=== PATIENT | female | born 2000 | race Two or more races ===

== ENCOUNTER 2025-02-03 06:17 | Inpatient (IN) | payer MEDICAID ==
[~2025-02-03] VITALS: Ht 170.2 cm; Wt 97.1 kg
[2025-02-03] MEDS ORDERED: NALBUPHINE HCL 10 MG/1ml INJECTION IV PRN (22:15)
[2025-02-03] MEDS ORDERED: LIDOCAINE 2%HCL (LOCAL ANESTH.) INJ 20ML MDV IJ PRN (22:15)
[2025-02-03] MEDS ORDERED: LACTATED RINGER'S 1,000 ML IV SCH (22:15)
[2025-02-03 22:38] LABS: Hematocrit 34.4 % (36.0-46.0); Hemoglobin 11.4 g/dL (12.2-16.2); Mean Corpuscular Hemoglobin 28.1 pg (28.0-32.0); Mean Corpuscular Volume 85.0 fL (80.0-100.0); Nucleated Red Blood Cells % 0.0 %
[2025-02-03 22:45] LABS: Urine Protein, UAD Negative (Negative)
[2025-02-03 22:54] LABS: INR 0.93 (0.9-1.15); Partial Thromboplastin Time 29.3 SEC (24.5-34.5); Prothrombin Time 9.9 sec (9.3-11.8)
[2025-02-03 23:00] LABS: Albumin 3.9 g/dL (3.2-4.8); Anion Gap 12 (5-15); Calcium 9.1 mg/dL (8.7-10.4); Carbon Dioxide 24 mmol/L (20-31); Chloride 104 mmol/L (98-107); Glucose 87 mg/dL (74-106); Potassium 3.5 mmol/L (3.5-5.1); Sodium 140 mmol/L (136-145); Total Protein 6.9 g/dL (5.7-8.2)
[2025-02-03 23:10] LABS: Alanine Aminotransferase < 9 U/L (7-40); Alkaline Phosphatase 187 U/L (46-116); BUN/Creatinine Ratio 8.3 (10.0-20.0); Bilirubin, Total 0.3 mg/dL (0.2-1.0); Blood Urea Nitrogen < 5 mg/dL (9-23)
[2025-02-03 23:11] LABS: Amphetamine Screen, Urine Neg (NEGATIVE); Barbiturate Scree,Urine Neg (NEGATIVE); Benzodiazephine Screen, Urine Neg (NEGATIVE); Cannabinoid Screen, Urine Neg (NEGATIVE); Cocaine Screen, Urine Neg (NEGATIVE); Opiate Scree,Urine Neg (NEGATIVE); Phencyclidine Screen, Urine Neg (NEGATIVE)
--- NOTE | 2025-02-03 23:16 | DVHHP2 ---
OB CC & HPI Date Date of Admission: Feb 03, 2025 Patient Identification: : 1 Para: 0 EDC: Feb 04, 2025 EGA: 39w 6d Chief Complaints: Reason for admission: induction of labor Indication for induction: other Admission Nurse Assessment Rev: Yes History of Present Complaints Ms Nishant Kaur presents to Place for scheduled IOL for Possible macrosomia. She reports normal FM, no UCs, VB, LOF, REEDER, epigastric pain or vision changes. Received care at [facility] with Dr. Alicea. Uncomplicated Past Medical History Cardiac: No pertinent Hx Pulmonary: No pertinent Hx Central Nervous System: No pertinent Hx GI: No pertinent Hx Hemotology/Oncology: No pertinent Hx Hepatobiliary: No pertinent Hx Psychiatric: No pertinent Hx Musculoskeletal: No pertinent Hx Rheumotologic: No pertinent Hx Infectious Disease: No peritnent Hx ENT: No pertinent Hx Renal/: No pertinent Hx Endocrine: No pertinent Hx Dermatology: No pertinent Hx Past Surgical History: No pertinent Hx OB History OB History Care: [facility] (at [facility]) Ultrasounds: Normal mid trimester US Obstetrical Complications: None Medical Complications: None Allergies: Coded Allergies: Penicillins (Verified Allergy, Unknown, 02/03/25) Current Medications Current Medications Medications (Trade) Dose Ordered Sig/Efrain Route PRN Reason Start Time Stop Time Status Last Admin Lactated Ringer's 1,000 ml @ 125 mls/hr Q8H IV 02/03/25 22:15 Nalbuphine HCl (Nubain) 10 mg Q4HP PRN IV MODERATE PAIN (4-6 PAIN SCALE) 02/03/25 22:15 Witch Holly (Tucks) 1 pad PRN PRN TOP PERINEAL AREA DISCOMFORT 02/03/25 22:15 Sodium Lauryl Sulfate (Phisoderm) 240 ml PRN PRN TOP PERINEAL AREA DISCOMFORT 02/03/25 22:15 Benzocaine (Dermoplast) 1 applic PRN PRN TOP PERINEAL AREA DISCOMFORT 02/03/25 22:15 Misoprostol (Cytotec) 50 mcg Q4HPRN PRN PO CERVICAL RIPENING 02/03/25 22:15 Lidocaine HCl (Xylocaine) 20 ml ONCE PRN IJ PERINEAL AREA DISCOMFORT 02/03/25 22:15 Oxytocin 1,000 ml @ 6 ml/hr Q24H IV 02/03/25 22:15 Family & Social History Family/Social History Past Family/Social History: Non pertinent Blood Type: O+ Rubella: immune RPR/VDRL: Negative GBS Status: Negative HBsAG: Negative Review of Systems Constitutional: No symptom reported Ears, Nose, & Throat: No symptom reported Eyes: No symptom reported Pulmonary/Respiratory: No symptom reported Cardiovascular: No symptom reported Gastrointestinal: No symptom reported Genitourinary: No symptom reported Musculoskeletal: No symptom reported Skin: No symptom reported Psychiatric: No symptom reported Endocrine: No symptom reported Hemotologic/Lymphatic: No symptom reported OB Admission Exam Physical Exam HEENT: TMs Normal, Fontanelles Normal, Nasal Mucosa Normal, Eyes non-injected, Oropharynx Normal, PERRLA, Moist Membranes, EOMI Heart: Rhythm Normal Lungs: Clear Abdomen: Gravid (and non-tender to palpation) Extremities: Normal Reflexes: Normal Cervical Dilatation: 1cm Effacement: 25% Station: -1 Membranes: Intact Heart Rate: 130's Accelerations: Accelerations Present Decelerations: No Decelerations Nursing Home Variability: Average (6-25) Contractions on Admission: None OB Plan Plan Admitting Diagnosis: <> IUP at 39w 6d <> Induction of Labor <> GBS Neg <> Category I FHR Tracing Plan: Induction Induction Methd: Misoprostol protocol Other Plan: Expectant vaginal delivery. Risks and possible complications of induction discussed with the patient. The patient had an estimated weight of 8pounds 4ounces. IOL process, cervical ripening with medication, cervical ripening balloon, oxytocin etc including the risks, benefits and all her options including primary Section discussed with the patient & partner. The patient wishes to proceed with trial of vaginal delivery. Informed consent obtained. Risk of pain, bleeding, infection, discussed with the patient and partner Consent for possible blood transfusion obtained. All questions answered. Admit to Place for scheduled IOL Routine L&D admission orders Misoprostol per protocol EFM per policy & protocol Intrauterine resuscitation PRN Labor analgesia PRN Encourage frequent position change and ambulation to facilitate labor & descent Supportive Care Anticipate Visit Coding OBGYN Date of Service: Feb 03, 2025 Billing Provider: JOON LEMUS CNM FINANCIAL SERVICE PROFESSIONAL Common Visit Codes: [id number] INP/OBS CARE (HIGH) FINANCIAL SERVICE PROFESSIONAL Procedure Codes: 89689-27- NON-STRESS TEST JOON LEMUS CNM Feb 03, 2025 23:16
[2025-02-04] MEDS: DERMOPLAST 60ML BOTTLE TOP PRN (00:28)
[2025-02-04] MEDS: WITCH HAZEL-GLYCERIN PAD TOP PRN (00:28)
[2025-02-04] MEDS: PHISODERM TOP SOLN 240ML BTL TOP PRN (00:28)
--- NOTE | 2025-02-04 00:47 | DVH ---
BIOPHYSICAL PROFILE HISTORY: presentation Comparison Study: None TECHNIQUE: Multiple real-time grayscale sonographic images through the gravid uterus of the fetus wi th duplex Doppler color flow and M-mode spectral analysis FINDINGS: Cephalic presentation. IMPRESSION: 1. Cephalic presentation.
--- NOTE | 2025-02-04 04:49 | DVHPN2 ---
CNM Labor Progress Note Date and Time Seen Date Seen: Feb 04, 2025 Time Seen: 04:35 Subjective Patient reports: No new complaints Objective Vital Signs VSS Monitoring Method Monitoring Method: External Heart Rate Heart Rate Baseline: 130 Heart Rate Variability: Moderate Presence of FHR Accelerations: Yes Presence of FHR Decelerations: No Changes in Trends of Patterns: No Are all 5 Components of the FH: Yes Contractions Contractions Frequency: Other (Q2-3) Duration of Contraction: 50 Contractions Intensity: Mild Contractions Resting Tone: Relaxed Membranes Membranes: Intact Vaginal Exam Vag Exam Deferred: Yes Medications Medications - Pitocin: No Medication - Epidural: No Medication - Other Misoprostol Dose #2 given at 04:31 Lab Results Lab Results Current Medications Medications (Trade) Dose Ordered Sig/Efrain Start Time Stop Time Status Last Admin Dose Admin Lactated Ringer's 1,000 ml @ 125 mls/hr Q8H 02/03/25 22:15 Nalbuphine HCl (Nubain) 10 mg Q4HP PRN 02/03/25 22:15 Thuan Barrera (Tucks) 1 pad PRN PRN 02/03/25 22:15 02/04/25 00:28 1 PAD Sodium Lauryl Sulfate (Phisoderm) 240 ml PRN PRN 02/03/25 22:15 02/04/25 00:28 240 ML Benzocaine (Dermoplast) 1 applic PRN PRN 02/03/25 22:15 02/04/25 00:28 1 APPLIC Misoprostol (Cytotec) 50 mcg Q4HPRN PRN 02/03/25 22:15 02/04/25 00:29 50 MCG Lidocaine HCl (Xylocaine) 20 ml ONCE PRN 02/03/25 22:15 Oxytocin 1,000 ml @ 6 ml/hr Q24H 02/03/25 22:15 Oxytocin 500 ml @ 999 mls/hr Q31M ONCE 02/03/25 22:15 02/03/25 22:45 DC Oxytocin 500 ml @ 125 mls/hr Q4H ONCE 02/03/25 22:45 02/04/25 02:44 DC Laboratory Tests Test 02/03/25 22:23 02/03/25 22:10 Range/Units White Blood Count 7.5 4.4-10.8 10^3/uL Red Blood Count 4.04 4.0-5.20 10^6/uL Hemoglobin 11.4 L 12.2-16.2 g/dL Hematocrit 34.4 L 36.0-46.0 % Mean Corpuscular Volume 85.0 80.0-100.0 fL Mean Corpuscular Hemoglobin 28.1 28.0-32.0 pg Mean Corpuscular Hemoglobin Concent 33.1 32.0-36.0 g/dL Red Cell Distribution Width 16.1 H 11.8-14.3 % Platelet Count 309 140-450 10^3/uL Mean Platelet Volume 7.7 6.9-10.8 fL Neutrophils (%) (Auto) 68.0 37.0-80.0 % Lymphocytes (%) (Auto) 24.9 10.0-50.0 % Monocytes (%) (Auto) 6.6 0.0-12.0 % Eosinophils (%) (Auto) 0.3 0.0-7.0 % Basophils (%) (Auto) 0.2 0.0-2.0 % Neutrophils # (Auto) 5.1 1.6-8.6 10 ^3/uL Lymphocytes # (Auto) 1.9 0.4-5.4 10 ^3/uL Monocytes # (Auto) 0.5 0-1.3 10 ^3/uL Eosinophils # (Auto) 0 0-0.8 10 ^3/uL Basophils # (Auto) 0 0-0.2 10 ^3/uL Nucleated Red Blood Cells 0.0 % Prothrombin Time 9.9 9.3-11.8 sec Prothrombin Time INR 0.93 0.9-1.15 Activated Partial Thromboplast Time 29.3 24.5-34.5 SEC Sodium Level 140 136-145 mmol/L Potassium Level 3.5 3.5-5.1 mmol/L Chloride Level 104 98-107 mmol/L Carbon Dioxide Level 24 20-31 mmol/L Anion Gap 12 5-15 Blood Urea Nitrogen < 5 L 9-23 mg/dL Creatinine 0.60 0.550-1.02 mg/dL Glomerular Filtration Rate Calc 127 >90 mL/min BUN/Creatinine Ratio 8.3 L 10.0-20.0 Serum Glucose 87 74-106 mg/dL Calcium Level 9.1 8.7-10.4 mg/dL Total Bilirubin 0.3 0.2-1.0 mg/dL Aspartate Amino Transferase (AST) 16 13-40 U/L Alanine Aminotransferase (ALT) < 9 7-40 U/L Alkaline Phosphatase 187 H 46-116 U/L Total Protein 6.9 5.7-8.2 g/dL Albumin 3.9 3.2-4.8 g/dL Treponema pallidum Antibody Non-reactive Negative Urine Color Light-yellow Yellow Urine Clarity Turbid H Clear Urine pH 6.5 5.0-9.0 Urine Specific [place] 1.007 1.001-1.035 Urine Protein Negative Negative Urine Ketones 1+ H Negative Urine Blood Negative Negative /uL Urine Nitrite Negative Negative Urine Bilirubin Negative Negative Urine Urobilinogen Normal Negative mg/dL Urine Leukocyte Esterase Negative Negative /uL Urine RBC 1 0 - 4 /hpf Urine Microscopic WBC 6 H 0-5 /HPF Urine Squamous Epithelial Cells Few <5 /hpf Urine Bacteria Many H None Seen /hpf Urine Glucose Normal Normal mg/dL Urine Opiates Screen Neg NEGATIVE Urine Fentanyl Screen Neg NEGATIVE Urine Barbiturates Screen Neg NEGATIVE Urine Phencyclidine Screen Neg NEGATIVE Urine Amphetamines Screen Neg NEGATIVE Urine Benzodiazepines Screen Neg NEGATIVE Urine Cocaine Screen Neg NEGATIVE Urine Cannabinoids Screen Neg NEGATIVE Plan Plan discussed with: Patient, Spouse, Other (Patient's mother and patient's sister) Visit Coding OBGYN Date of Service: Feb 04, 2025 Billing Provider: JOON LEMUS CNM CLIENT ADMINISTRATOR Common Visit Codes: [id number] INP/OBS CARE(HIGH) CLIENT ADMINISTRATOR Procedure Codes: 99831-27- NON-STRESS TEST JOON LEMUS CNM Feb 04, 2025 04:49
[2025-02-04] MEDS ORDERED: ONDANSETRON HCL 4 MG/2 ML VIAL IV PRN (14:45)
[2025-02-04] MEDS ORDERED: DINOPROSTONE 10MG VAG SUPP PV ONE (14:45)
[2025-02-04] MEDS ORDERED: LACTATED RINGER'S 1,000 ML IV ONE (16:15)
[2025-02-04] MEDS: ROPIVACAINE HCL 100 ML ONE ×2 (16:52→23:50)
[2025-02-04] MEDS: LACT. RINGERS/OXYTOCIN 20UNITS 1,000 ML IV SCH (17:29)
--- NOTE | 2025-02-04 21:31 | DVHPN2 ---
OB Labor Progress Note Date and Time Seen Date Seen: Feb 04, 2025 Time Seen: 21:26 Subjective Patient reports: No new complaints, Feels better (s/p Epidural, no pain) Objective Vital Signs Afeb VS stable Monitoring Method Monitoring Method: External Heart Rate Heart Rate Baseline: 135 Heart Rate Variability: Moderate Presence of FHR Accelerations: Yes Presence of FHR Decelerations: No Contractions Contractions Frequency: Other (3 in 10min) Contractions Intensity: Moderate Contractions Resting Tone: Relaxed Membranes Membranes: Ruptured Amniotic Fluid Color: TALENT ACQUISITION COORDINATOR Meconium (2+ mec) Vaginal Exam Vaginal Exam Dilation: 5 Vaginal Exam Effacement: 90 Vaginal Exam Station: -2 Vaginal Exam Presentation: VTX Vaginal Exam Show: None Medications Medications - Pitocin: Yes Medication - Epidural: Yes Lab Results Lab Results Current Medications Medications (Trade) Dose Ordered Sig/Efrain Start Time Stop Time Status Last Admin Dose Admin Lactated Ringer's 1,000 ml @ 125 mls/hr Q8H 02/03/25 22:15 Nalbuphine HCl (Nubain) 10 mg Q4HP PRN 02/03/25 22:15 Witbriseyad Holly (Tucks) 1 pad PRN PRN 02/03/25 22:15 02/04/25 00:28 1 PAD Sodium Lauryl Sulfate (Phisoderm) 240 ml PRN PRN 02/03/25 22:15 02/04/25 00:28 240 ML Benzocaine (Dermoplast) 1 applic PRN PRN 02/03/25 22:15 02/04/25 00:28 1 APPLIC Misoprostol (Cytotec) 50 mcg Q4HPRN PRN 02/03/25 22:15 02/04/25 10:28 50 MCG Lidocaine HCl (Xylocaine) 20 ml ONCE PRN 02/03/25 22:15 Oxytocin 1,000 ml @ 6 ml/hr Q24H 02/03/25 22:15 02/04/25 17:29 6 ML/HR Oxytocin 500 ml @ 999 mls/hr Q31M ONCE 02/03/25 22:15 02/03/25 22:45 DC Oxytocin 500 ml @ 125 mls/hr Q4H ONCE 02/03/25 22:45 02/04/25 02:44 DC Dinoprostone (Cervidil Suppository) 1 supp ONCE ONCE 02/04/25 14:45 02/04/25 14:46 DC Ondansetron HCl (Zofran) 4 mg Q4HPRN PRN 02/04/25 14:45 Ephedrine Sulfate (ePHEDrine SULFATE) 10 mg PRN ONCE 02/04/25 16:15 02/04/25 16:17 DC Lactated Ringer's 1,000 ml @ 1,000 mls/hr Q1H ONCE 02/04/25 16:15 02/04/25 17:14 DC Laboratory Tests Test 02/03/25 22:23 02/03/25 22:10 Range/Units White Blood Count 7.5 4.4-10.8 10^3/uL Red Blood Count 4.04 4.0-5.20 10^6/uL Hemoglobin 11.4 L 12.2-16.2 g/dL Hematocrit 34.4 L 36.0-46.0 % Mean Corpuscular Volume 85.0 80.0-100.0 fL Mean Corpuscular Hemoglobin 28.1 28.0-32.0 pg Mean Corpuscular Hemoglobin Concent 33.1 32.0-36.0 g/dL Red Cell Distribution Width 16.1 H 11.8-14.3 % Platelet Count 309 140-450 10^3/uL Mean Platelet Volume 7.7 6.9-10.8 fL Neutrophils (%) (Auto) 68.0 37.0-80.0 % Lymphocytes (%) (Auto) 24.9 10.0-50.0 % Monocytes (%) (Auto) 6.6 0.0-12.0 % Eosinophils (%) (Auto) 0.3 0.0-7.0 % Basophils (%) (Auto) 0.2 0.0-2.0 % Neutrophils # (Auto) 5.1 1.6-8.6 10 ^3/uL Lymphocytes # (Auto) 1.9 0.4-5.4 10 ^3/uL Monocytes # (Auto) 0.5 0-1.3 10 ^3/uL Eosinophils # (Auto) 0 0-0.8 10 ^3/uL Basophils # (Auto) 0 0-0.2 10 ^3/uL Nucleated Red Blood Cells 0.0 % Prothrombin Time 9.9 9.3-11.8 sec Prothrombin Time INR 0.93 0.9-1.15 Activated Partial Thromboplast Time 29.3 24.5-34.5 SEC Sodium Level 140 136-145 mmol/L Potassium Level 3.5 3.5-5.1 mmol/L Chloride Level 104 98-107 mmol/L Carbon Dioxide Level 24 20-31 mmol/L Anion Gap 12 5-15 Blood Urea Nitrogen < 5 L 9-23 mg/dL Creatinine 0.60 0.550-1.02 mg/dL Glomerular Filtration Rate Calc 127 >90 mL/min BUN/Creatinine Ratio 8.3 L 10.0-20.0 Serum Glucose 87 74-106 mg/dL Calcium Level 9.1 8.7-10.4 mg/dL Total Bilirubin 0.3 0.2-1.0 mg/dL Aspartate Amino Transferase (AST) 16 13-40 U/L Alanine Aminotransferase (ALT) < 9 7-40 U/L Alkaline Phosphatase 187 H 46-116 U/L Total Protein 6.9 5.7-8.2 g/dL Albumin 3.9 3.2-4.8 g/dL Treponema pallidum Antibody Non-reactive Negative Urine Color Light-yellow Yellow Urine Clarity Turbid H Clear Urine pH 6.5 5.0-9.0 Urine Specific [place] 1.007 1.001-1.035 Urine Protein Negative Negative Urine Ketones 1+ H Negative Urine Blood Negative Negative /uL Urine Nitrite Negative Negative Urine Bilirubin Negative Negative Urine Urobilinogen Normal Negative mg/dL Urine Leukocyte Esterase Negative Negative /uL Urine RBC 1 0 - 4 /hpf Urine Microscopic WBC 6 H 0-5 /HPF Urine Squamous Epithelial Cells Few <5 /hpf Urine Bacteria Many H None Seen /hpf Urine Glucose Normal Normal mg/dL Urine Opiates Screen Neg NEGATIVE Urine Fentanyl Screen Neg NEGATIVE Urine Barbiturates Screen Neg NEGATIVE Urine Phencyclidine Screen Neg NEGATIVE Urine Amphetamines Screen Neg NEGATIVE Urine Benzodiazepines Screen Neg NEGATIVE Urine Cocaine Screen Neg NEGATIVE Urine Cannabinoids Screen Neg NEGATIVE Assessment Assessment Term IUP, Induction of labor Categ 1 tracing GBS neg Plan Plan s/p AROM Continue Pitocin Anticipated Risks of meconium fluid discussed w/ patient Plan discussed with: Patient Visit Coding OBGYN Date of Service: Feb 04, 2025 Billing Provider: TAD MEDLEY DO BUSINESS SUPPORT Common Visit Codes: [id number] INP/OBS CARE(HIGH) (Procedure: Amniotomy AROM) GALINDOTAD G DO Feb 04, 2025 21:31
--- NOTE | 2025-02-05 01:51 | LDN2 ---
Labor and Delivery Note Date 02/05/25 Age 24 1 Para 1 EGA 40.1 Diagnosis Term , delivered Meconium fluid Vaginal Delivery: VTX Vacuum Assisted: No Placenta: Spontaneous Sex: Female Weight 3850gm ( 8 lb, 8oz) Apgars 8/9 Amniotic Fluid: Meconium Stained Anesthesia Epidural Episiotomy: No Extension: No Repaired with 1st deg perineal/post vaginal lac repaired w/ 3-0 Vicryl x 2 interrupted stitches EBL 100 mL Labs Blood Bank 02/03/25 22:23: Blood Type O POSITIVE Complications None Conditions Stable Comments/Significant Med Moncho NO dystocia. Anterior (left) shoulder delivered first, then post shoulder (right) w/ no difficulty. Respiratory team present for MEC delivery. Baby vigorous at . Mother and baby doing well Visit Coding OBGYN Date of Service: Feb 05, 2025 Billing Provider: TAD MEDLEY DO HOUSE FATHER Common Visit Codes: PROCEDURE ONLY HOUSE FATHER Procedure Codes: [id number] OB CARE,VAG DELIVERY TAD MEDLEY DO Feb 05, 2025 01:51
[2025-02-05] MEDS: LACT. RINGERS/OXYTOCIN 20UNITS 500 ML IV ONE ×2 (02:35)
[2025-02-05 03:30] VITALS: PULSE 116; RESP 18; O2SAT 100
[2025-02-05] MEDS ORDERED: IBUPROFEN 600 MG TAB PO PRN (04:00)
[2025-02-05] MEDS ORDERED: ACETAMINOPHEN 325 MG TAB PO PRN (04:00)
[2025-02-05 07:00] VITALS: BP 127/71; PULSE 99; RESP 18; TEMP 98.2; O2SAT 97
--- NOTE | 2025-02-05 09:29 | DVHPN2 ---
Progress Note Date Seen: Feb 05, 2025 Subjective PPD#1 s/p Term No complaints. lochia mild. Pain controlled vital signs Vital Sign Date Time Temp Pulse Resp B/P (MAP) Pulse Ox O2 Delivery O2 Flow Rate FiO2 02/05/25 07:00 Room Air 0.0 02/05/25 07:00 98.2 99 18 127/71 (89) 97 98.2 Total Intake and Output 02/04/25 02/04/25 02/05/25 15:00 23:00 07:00 Output Total 1500 ml Balance -1500 ml medications Current Medications Medications Dose Ordered Sig/Efrain Route Start Time Stop Time Status Last Admin Dose Admin Lactated Ringer's 1,000 ml @ 125 mls/hr Q8H IV 02/03/25 22:15 Nalbuphine HCl 10 mg Q4HP PRN IV 02/03/25 22:15 Cancel Witch Holly 1 pad PRN PRN TOP 02/03/25 22:15 02/04/25 00:28 1 PAD Sodium Lauryl Sulfate 240 ml PRN PRN TOP 02/03/25 22:15 02/04/25 00:28 240 ML Benzocaine 1 applic PRN PRN TOP 02/03/25 22:15 02/04/25 00:28 1 APPLIC Lidocaine HCl 20 ml ONCE PRN IJ 02/03/25 22:15 Cancel Ondansetron HCl 4 mg Q4HPRN PRN IV 02/04/25 14:45 Ibuprofen 600 mg Q6HP PRN PO 02/05/25 04:00 Acetaminophen 650 mg Q4HP PRN PO 02/05/25 04:00 laboratory and microbiology Laboratory Tests 02/03/25 22:23 Test 02/03/25 22:23 Range/Units Serum Glucose 87 74-106 mg/dL Objective O: AFVSS Chest: heart and lung sounds normal. Abd soft, non-tender, fundus firm, BS, no rebound or guarding, Ext Neg Homans, Non-tender, edema Lochia - minimal Labs Pending Assessment/Plan PPD#1 s/p Supportive care D/C planning Plan discussed with: Patient Visit Coding OBGYN Date of Service: Feb 05, 2025 Billing Provider: TAD MEDLEY DO DIGITAL COMPOSER Common Visit Codes: [id number] INP/OBS CARE(MOD) TAD MEDLEY DO Feb 05, 2025 09:29
[2025-02-05] MEDS ORDERED: IBU600T PO (10:46)
--- NOTE | 2025-02-05 10:49 | DVHDS2 ---
Physician Discharge Progress N Final Diagnosis: Term , delivered Operations or Procedures: Operations or Procedures Induction of labor w/ Commentary: Commentary Uncomplicated labor and delivery Baby 8.5 lbs. meconium aspiration with resp distress, transferred to higher level of care MOM requesting early discharge. Meeting all recovery milestones, stable Condition on Discharge: Stable Disposition: Home Discharge Instructions: Diet: Regular Activity: Light activity Activity comment: Pelvic rest x 6 wk Follow Up/Referral: [address] Alicea Medications: Ibuprofen eRx PRN pain/ cramps Follow Up Care: Discharge Statement: "Patient was advised to return to the ER or call 911 if any headaches, dizziness, shortness of breath, chest pain, abdominal pain, bleeding, fevers, or worsening of medical condition. Patient was counseled about treatment plan, medications, possible side effects, patientverbalized understanding. All questions were answered to the best of my ability. This discharge took greater then 30 minutes in planning, reviewing documentation, counseling the patient, and discussing with other team members." Visit Coding OBGYN Date of Service: Feb 05, 2025 Billing Provider: TAD MEDLEY DO SAS PROGRAMMER REMOTE Common Visit Codes: [id number] DISCH DAY <30MIN TAD MEDLEY DO Feb 05, 2025 10:49
[2025-02-05 11:00] VITALS: BP 112/66; PULSE 97; RESP 20; TEMP 97.7; O2SAT 97
== END 2025-02-05 15:29 | disposition home or self-care (01) | DRG 560 ==
LOC: LDRP 21:59
PROVIDERS: ADMIT Obstetrics & Gynecology; ATTEND Obstetrics & Gynecology
PROC: 10907ZC Drainage of Amniotic Fluid, Therapeutic from Products of Conception, Via Natural or Artificial Opening (ICD-10-PCS; 2025-02-04)
PROC: 10E0XZZ Delivery of Products of Conception, External Approach (ICD-10-PCS; principal; 2025-02-05)
PROC: 0HQ9XZZ Repair Perineum Skin, External Approach (ICD-10-PCS; 2025-02-05)
PROC: 3E0R3BZ Introduction of Anesthetic Agent into Spinal Canal, Percutaneous Approach (ICD-10-PCS; 2025-02-05)
PROC: 00HU33Z Insertion of Infusion Device into Spinal Canal, Percutaneous Approach (ICD-10-PCS; 2025-02-05)
DX: O77.0 Labor and delivery complicated by meconium in amniotic fluid (principal); Z37.0 Single live birth; O70.0 First degree perineal laceration during delivery; Z3A.39 39 weeks gestation of pregnancy; Z88.0 Allergy status to penicillin
CPT/HCPCS: 36415; 59025; 59409; 62282; 76815; 80053; 80307; 81001; 81002; 85025; 85610; 85730; 86780; 86850; 86900; 86901; 94760; 94762; 96360; 96361; 96365; 96366; G0378; J2590